=== PATIENT | female | born 1965 | race Caucasian/White ===

== ENCOUNTER 2018-08-26 14:30 | Emergency (ER) | payer BC, MEDICAID, OTHER ==
[2018-08-26 14:42] VITALS: BP 113/79
--- NOTE | 2018-08-26 14:59 | UC ---
Abdominal Pain Female HPI - HPI Summary HPI Summary: 53 yo female presents with lower abdominal pain for 1 week. She tells me that her pain started lower abdominal and was mild in nature. Yesterday and today her pain has significantly worsened. She reports 3-4 episodes of loose stools each day throughout the week. She states she has had UTIs in the past that have felt similar, but she is not having any urinary burning, frequency, or pressure. She is eating and drinking well, but does feel a little nauseous. Denies SOB, chest pain, vomiting, blood in stool, dysuria, flank pain, vaginal bleeding or discharge. She has had a hysterectomy, but still has both ovaries. - History of Current Complaint Chief Complaint: UCAbdominalPain Stated Complaint: SEVERE STOMACH PAIN Time Seen by Provider: 08/26/18 14:59 Hx Last Menstrual Period: hysterectomy Onset/Duration: Gradual Onset Severity Initially: Mild Severity Currently: Moderate Pain Intensity: 6 Pain Scale Used: 0-10 Numeric Allergies/Adverse Reactions: Allergies Allergy/AdvReac Type Severity Reaction Status Date / Time No Known Allergies Allergy Verified 08/26/18 14:42 Home Medications: Home Medications Bismuth Subsalicylate [Pepto-Bismol] 3 tab PO ONCE PRN 08/26/18 [History Confirmed 08/26/18] PMH/Surg Hx/FS Hx/Imm Hx - Additional Past Medical History Additional PMH: None - Surgical History Surgical History: Yes Surgery Procedure, Year, and Place: left wrist repair 2011. hysterecomy - Family History Known Family History: Positive: Hypertension - Social History Alcohol Use: Weekly Substance Use Type: None Smoking Status (MU): Never Smoked Tobacco Review of Systems All Other Systems Reviewed And Are Negative: Yes Constitutional: Positive: Negative Skin: Positive: Negative Respiratory: Positive: Negative Cardiovascular: Positive: Negative Gastrointestinal: Positive: Abdominal Pain, Diarrhea, Nausea Genitourinary: Positive: Negative Neurovascular: Positive: Negative Neurological: Positive: Negative Psychological: Positive: Negative Physical Exam - Summary Physical Exam Summary: GENERAL: NAD. WDWN. No pain distress. SKIN: No rashes, sores, lesions, or open wounds. NECK: Supple. Nontender. No lymphadenopathy. CHEST: CTAB. No r/r/w. No accessory muscle use. Breathing comfortably and in no distress. CV: RRR. Without m/r/g. Pulses intact. Cap refill <2seconds ABDOMEN: Mild TTP LLQ, superpubic, and RLQ. Soft. No distention or guarding. No CVA tenderness. Bowel sounds present NEURO: Alert. PSYCH: Age appropriate behavior. Triage Information Reviewed: Yes Vital Signs: Initial Vital Signs Temp 98 F 08/26/18 14:37 Pulse 71 08/26/18 14:37 Resp 14 08/26/18 14:37 BP 113/79 08/26/18 14:37 Pulse Ox 100 08/26/18 14:37 Laboratory Tests 08/26/18 14:53 POC Urine Color Light yellow POC Urine Clarity Clear POC Urine pH 5.5 POC Ur Specif [place] <= 1.005 L POC Urine Protein Negative POC Ur Glucose (UA) Negative POC Urine Ketones Negative POC Urine Blood Trace-lysed A POC Urine Nitrite Negative POC Urine Bilirubin Negative POC Urine Urobilinogen 0.2 POC U Leukocyte Esteras Negative Vital Signs Reviewed: Yes Abd Pain Female Course/Dx - Course Course Of Treatment: U/S: IMPRESSION: 1. STATUS POST HYSTERECTOMY. 2. SMALL CYSTS WITHIN THE RIGHT OVARY MOST CONSISTENT WITH FOLLICULAR CYSTS. Discussed results with pt. Given that she is having loose stools and nausea, I am not confident that these ovarian cysts are the sole cause of her discomfort - therefore I have recommended that she go to the ED for further evaluation of her abdominal pain as I believe she requires a CT scan with po contrast. Pt was agreeable with this. - Differential Dx/Diagnosis Provider Diagnosis: Lower abdominal pain, Loose stools Discharge - Sign-Out/Discharge Documenting (check all that apply): Patient Departure All imaging exams completed and their final reports reviewed: Yes - Discharge Plan Condition: Stable Disposition: HOME-RECOMMEND TO ED Referrals: Munira Diaz MD [Primary Care Provider] - Additional Instructions: Your ultrasound showed an ovarian cyst. This could be the cause of your pain, but your symptoms seem to support a potential GI pathology - therefore I recommend that you go to the ER for further evaluation and a more appropriate work up of your abdominal pain. This may include a CT scan with oral and IV contrast. - Billing Disposition and Condition Condition: STABLE Disposition: Home-Recommend to ED
== END 2018-08-26 16:41 | disposition home health service (06) ==
LOC: UCEAST 14:30
DX: R10.30 Lower abdominal pain, unspecified (principal); R19.7 Diarrhea, unspecified
CPT/HCPCS: 76830; 81003; 99212; G0463

== ENCOUNTER 2018-08-26 17:06 | Emergency (ER) | payer MEDICAID, OTHER ==
[2018-08-26] MEDS ORDERED: Ketorolac INJ* 30 MG/ML 1 ML VIAL IV PUSH ONE (18:01)
[2018-08-26] MEDS ORDERED: NS 0.9% 1000 ML** 1,000 ML IV ONE (18:01)
[2018-08-26 18:22] LABS: ABS Basophils 0.1 10^3/ul (0-0.2); ABS Eosinophils 0.1 10^3/ul (0-0.6); ABS Lymphocytes 1.5 10^3/ul (1.0-4.8); ABS Monocytes 0.7 10^3/ul (0-0.8); ABS Neutrophils 7.7 10^3/ul (1.5-7.7); Eosinophil % 0.6 %; Hematocrit 39 % (35-47); Hemoglobin 13.2 g/dL (12.0-16.0); Lymphocyte % 14.9 %; Mean Corpuscular HGB Conc 34 g/dL (31-36); Mean Corpuscular Hemoglobin 31 pg (27-31); Mean Corpuscular Volume 93 fL (80-97); Mean Platelet Volume 8.6 fL (7.4-10.4); Platelet Count 229 10^3/uL (150-450); Red Cell Distribution Width 14 % (10-15)
[2018-08-26 18:40] LABS: Albumin 4.5 g/dL (3.2-5.2); Albumin/Globulin Ratio 1.4 (1-3); BUN/Creatinine Ratio 14.7 (8-20); C Reactive Protein 32.57 mg/L (<8.01); Calcium 10.2 mg/dL (8.6-10.3); EGFR African American 110.4 (>60); EGFR Non-African American 91.2 (>60); Globulin 3.3 g/dL (2-4); Potassium 3.6 mmol/L (3.5-5.0); Total Bilirubin 0.8 mg/dL (0.2-1.0); Total Protein 7.8 g/dL (6.4-8.9)
--- NOTE | 2018-08-26 18:40 | ED ---
GI/ HPI - HPI Summary HPI Summary: 53-year-old female presents with lower abdominal pain. for the past week. pain has been increasing. States she's been having loose stool. She admits to of decreased appetite. Admits to some urgency and frequency but no dysuria. She has been having nausea but no vomiting. No hematuria. Never this pain before. No previous surgeries. Has no medical conditions. tried Pepto-Bismol for her symptoms today. - History of Current Complaint Chief Complaint: EDAbdPain Time Seen by Provider: 08/26/18 17:56 Stated Complaint: ABD PAIN PER PT Hx Last Menstrual Period: hysterectomy Pain Intensity: 8 - Allergy/Home Medications Allergies/Adverse Reactions: Allergies Allergy/AdvReac Type Severity Reaction Status Date / Time No Known Allergies Allergy Verified 08/26/18 14:42 PMH/Surg Hx/FS Hx/Imm Hx Endocrine/Hematology History: Denies: Hx Diabetes, Hx Thyroid Disease Cardiovascular History: Denies: Hx Hypertension, Hx Pacemaker/ICD Respiratory History: Denies: Hx Asthma, Hx Chronic Obstructive Pulmonary Disease (COPD) GI History: Denies: Hx Ulcer History: Denies: Hx Dialysis, Hx Renal Disease Sensory History: Denies: Hx Hearing Aid Psychiatric History: Denies: Hx Panic Disorder - Cancer History Hx Chemotherapy: No Hx Radiation Therapy: No - Surgical History Surgery Procedure, Year, and Place: left wrist repair 2011. hysterecomy Infectious Disease History: No Infectious Disease History: Denies: Hx Hepatitis, Hx Human Immunodeficiency Virus (HIV), Traveled Outside the [place] in Last 30 Days - Family History Known Family History: Positive: Hypertension - Social History Alcohol Use: Weekly Substance Use Type: Reports: None Smoking Status (MU): Never Smoked Tobacco Review of Systems Negative: Fever Negative: Chest Pain Negative: Shortness Of Breath Positive: Abdominal Pain, Diarrhea, Nausea. Negative: Vomiting All Other Systems Reviewed And Are Negative: Yes Physical Exam Triage Information Reviewed: Yes Vital Signs On Initial Exam: Initial Vitals Temp Pulse Resp BP Pulse Ox 98.5 F 79 18 112/81 99 08/26/18 17:08 08/26/18 17:08 08/26/18 17:08 08/26/18 17:08 08/26/18 17:08 Vital Signs Reviewed: Yes Appearance: Positive: Well-Appearing Skin: Positive: Warm, Dry Head/Face: Positive: Normal Head/Face Inspection Eyes: Positive: Normal, Conjunctiva Clear ENT: Positive: Pharynx normal Respiratory/Lung Sounds: Positive: Clear to Auscultation, Breath Sounds Present Cardiovascular: Positive: Normal, RRR Abdomen Description: Positive: Soft, Other: - tenderness LLQ Bowel Sounds: Positive: Present Musculoskeletal: Positive: Normal Neurological: Positive: Normal Psychiatric: Positive: Normal Diagnostics - Vital Signs Vital Signs Temp Pulse Resp BP Pulse Ox 08/26/18 18:00 79 100 08/26/18 17:53 76 99 08/26/18 17:08 98.5 F 79 18 112/81 99 - Laboratory Lab Results: Lab Results 08/26/18 08/26/18 08/26/18 Range/Units 18:15 18:15 18:15 WBC 10.0 (3.5-10.8) 10^3/uL RBC 4.20 (3.70-4.87) 10^6 /uL Hgb 13.2 (12.0-16.0) g/dL Hct 39 (35-47) % MCV 93 (80-97) fL MCH 31 (27-31) pg MCHC 34 (31-36) g/dL RDW 14 (10-15) % Plt Count 229 (150-450) 10^3/uL MPV 8.6 (7.4-10.4) fL Neut % (Auto) 76.6 % Lymph % (Auto) 14.9 % [place] % (Auto) 7.4 % Eos % (Auto) 0.6 % Baso % (Auto) 0.5 % Absolute Neuts (auto) 7.7 (1.5-7.7) 10^3/ul Absolute Lymphs (auto) 1.5 (1.0-4.8) 10^3/ul Absolute Monos (auto) 0.7 (0-0.8) 10^3/ul Absolute Eos (auto) 0.1 (0-0.6) 10^3/ul Absolute Basos (auto) 0.1 (0-0.2) 10^3/ul Absolute Nucleated RBC 0.0 10^3/ul Nucleated RBC % 0.0 Sodium 136 (135-145) mmol/L Potassium 3.6 (3.5-5.0) mmol/L Chloride 100 L (101-111) mmol/L Carbon Dioxide 30 (22-32) mmol/L Anion Gap 6 (2-11) mmol/L BUN 10 (6-24) mg/dL Creatinine 0.68 (0.51-0.95) mg/dL Est GFR ( Amer) 110.4 (>60) Est GFR (Non-Af Amer) 91.2 (>60) BUN/Creatinine Ratio 14.7 (8-20) Glucose 77 (70-100) mg/dL Lactic Acid 0.5 (0.5-2.0) mmol/L Calcium 10.2 (8.6-10.3) mg/dL Total Bilirubin 0.80 (0.2-1.0) mg/dL AST 14 (13-39) U/L ALT 10 (7-52) U/L Alkaline Phosphatase 53 (34-104) U/L C-Reactive Protein 32.57 H (<8.01) mg/L Total Protein 7.8 (6.4-8.9) g/dL Albumin 4.5 (3.2-5.2) g/dL Globulin 3.3 (2-4) g/dL Albumin/Globulin Ratio 1.4 (1-3) Lipase 15 (11.0-82.0) U/L Result Diagrams: 08/26/18 18:15 08/26/18 18:15 Lab Statement: Any lab studies that have been ordered have been reviewed, and results considered in the medical decision making process. - CT abd CT Interpretation Completed By: Radiologist Summary of CT Findings: IMPRESSION: 1. Proximal sigmoid colon diverticulitis. No perforation or abscess. 2. Bosniak type I renal cyst. No followup indicated. Re-Evaluation - Re-Evaluation First Eval Re-Evaluation Time: 17:50 Change: Improved Comment: feeling better Second Eval Re-Evaluation Time: 21:45 Comment: discussed results GIGU Course/Dx - Course Course Of Treatment: 53-year-old female presents with lower abdominal pain. for the past week. pain has been increasing. States she's been having loose stool. She admits to of decreased appetite. Admits to some urgency and frequency but no dysuria. She has been having nausea but no vomiting. No hematuria. Never this pain before. No previous surgeries. Has no medical conditions. tried Pepto-Bismol for her symptoms today. On exam tenderness left lower quadrant. White blood count normal. CRP elevated. urine normal. CT shows diverticulitis. will treat with augmentin and flagyl. patient understand and agrees with plan. - Diagnoses Differential Diagnoses - Female: Appendicitis, Diverticulitis, Urinary Tract Infection Provider Diagnoses: Diverticulitis Discharge - Sign-Out/Discharge Documenting (check all that apply): Patient Departure Patient Received Moderate/Deep Sedation with Procedure: No - Discharge Plan Condition: Good Disposition: HOME Prescriptions: Amoxicillin/Clavulanate TAB* [Augmentin TAB 875*] 875 mg PO BID #19 tab metroNIDAZOLE [Flagyl 500 MG TAB] 500 mg PO TID #29 tab Ondansetron ODT TAB* [Zofran 4 MG Odt TAB*] 4 mg PO Q6H PRN #16 tab.odt PRN Reason: Nausea Patient Education Materials: Diverticulitis (ED), Diverticulitis Diet (ED) Referrals: Munira Diaz MD [Primary Care Provider] - Additional Instructions: Take augmentin twice a day for 10 days, first dose given in ED Take Flagyl every 8 hours for 10 days, first dose given in ED Take Zofran every 6 hours for nausea Follow clear liquid diet until symptoms improve Return to ED if unable to keep anything down, develop fever, or any new or worsening symptoms - Billing Disposition and Condition Condition: GOOD Disposition: Home
[2018-08-26 18:48] LABS: Urine Appearance Clear; Urine Bacteria 1+ (Absent); Urine Bilirubin Negative (Negative); Urine Blood 1+ (Negative); Urine Color Straw; Urine Glucose Negative (Negative); Urine Ketones Negative (Negative); Urine Nitrite Negative (Negative); Urine Protein Negative (Negative); Urine Red Blood Cell Trace(0-2/hpf) (Absent); Urine Specific Gravity 1.004 (1.010-1.030); Urine Squamous Epithelial Cell Present (Absent); Urine Urobilinogen Negative (Negative); Urine White Blood Cell Absent (Absent)
[2018-08-26] MEDS ORDERED: Iohexol 300* (CONTRAST) 10 ML SDV IV ONE (19:47)
[2018-08-26 21:35] VITALS: BP 115/87
[2018-08-26] MEDS ORDERED: Amoxicillin/Clavulanate TAB* 875 MG PO ONE (21:42)
[2018-08-26] MEDS ORDERED: metroNIDAZOLE TAB* 250 MG PO ONE (21:42)
== END 2018-08-26 21:55 | disposition home or self-care (01) ==
LOC: ED 17:06
DX: K57.32 Diverticulitis of large intestine without perforation or abscess without bleeding (principal); N28.1 Cyst of kidney, acquired; Z90.710 Acquired absence of both cervix and uterus
CPT/HCPCS: 36415; 74177; 80053; 81003; 81015; 83605; 83690; 85025; 86140; 87086; 96361; 96374; 99283; A9270-GY; J1885; Q9967

== ENCOUNTER 2018-09-19 12:33 | Emergency (ER) | payer OTHER ==
--- OUTSIDE RECORDS SUMMARY | 2018-09-19 12:40 | XMS REPORT | Continuity of Care Document ---
:1965 External Reference #:[id number] Author Name Natasha Forman Care Team Providers Name Role Phone Munira Diaz MD Primary Care Physician Unavailable Payers Date Identification Numbers Payment Provider Subscriber Policy Number: [id number] Alexis Ward PayID: [id number] [address] [place] [address] Problems Active Problems Provider Date Uterine leiomyoma Gabriella Keller N.PTy Onset: 05/06/2015 Family History Date Family Member(s) Observation Comments General Arthritis Father Hypertension Age 67 Father PGF - stroke Mother Alive And Well Age 67 Siblings None Social History Type Date Description Comments Sex Unknown Marital Status 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 ETOH Use Currently consumes alcohol 2 - 6 per week Tobacco Use Start: Unknown Patient has never smoked Recreational Drug Use Negative For Denies Drug Use Smoking Status Reviewed: 09/10/18 Patient has never smoked Exercise Type/Frequency Exercises sporadically Allergies, Adverse Reactions, Alerts Description No Known Drug Allergies Medications Active Medications SIG Qnty Indications Ordering Date Provider Metronidazole take 1 tablet by Unknown 500mg mouth three times a Tablets day for 10 days Amoxicillin/Clavulana take 1 tablet by Unknown te Potassium mouth twice a day 875-125mg for 10 days Tablets Vitamin B 12 1 sl every day Unknown 100mcg Lozenges Magnesium 1-2 by mouth every Unknown 300mg day Capsules Hot Flash Relief 2 Tablets Twice A Unknown 500MG Day Deep Rest Unknown Black Cohosh 1 by mouth every day Unknown 40mg Capsules Ibuprofen by mouth three times Unknown 800mg Tablets a day as needed Colace 2 caps po twice Unknown 100mg Capsules daily Vitamin D3 twice a week Unknown 5000Unit/ML Liquid [place] III 1 by mouth Unknown 1000mg occasionally Capsules History Medications Lact-Enz Unknown - 07/12/2015 Utrophin Unknown - 07/12/2015 Cardio Complete Unknown - 07/12/2015 Capsules Oxycodone-Acetaminophen take 1 to 2 tablets by Unknown - 09/2018 5-325mg mouth every 6 to 8 Tablets hours as needed pain Megestrol 1 by mouth bid Unknown - 07/28/2015 40mg Tablets Intelligent Blend 1 by mouth daily (on Unknown - 07/28/2015 Tablets hold) Progesterone Micronized 1 by mouth every day Unknown - 2015 85G Day 12-26 Capsules Smooth Cycle 1 po qd Unknown - 07/28/2015 W15-Invbyp 1 po qd Unknown - 07/28/2015 Iron 1 by mouth every day Unknown - 07/23/2018 325(65Fe) mg Tablets Oxycodone-Acetaminophen Unknown - 05/16/2015 5-325mg Tablets Sulfamethoxazole/Trimethopr Unknown - Unknown im DS 800-160mg Tablets Vital Signs Date Vital Result Comment 09/10/2018 1:33pm Height 64 inches 5'4" Weight 118.00 lb Heart Rate 68 /min BP Systolic 113 mmHg BP Diastolic 69 mmHg O2 % BldC Oximetry 97 % BMI (Body Mass Index) 20.3 kg/m2 07/23/2018 2:45pm Height 64 inches 5'4" Weight 116.00 lb Heart Rate 59 /min BP Systolic 141 mmHg BP Diastolic 92 mmHg Body Temperature 97.7 F O2 % BldC Oximetry 100 % BMI (Body Mass Index) 19.9 kg/m2 07/29/2015 9:34am Height 64 inches 5'4" Weight 137.75 lb w/shoes Heart Rate 84 /min BP Systolic Sitting 96 mmHg Ra reg cuff BP Diastolic Sitting 72 mmHg Ra reg cuff BMI (Body Mass Index) 23.6 kg/m2 Ejection Fraction 55-60% Echo 06/04/15 07/12/2015 10:02am Height 64 inches 5'4" Weight 143.00 lb Heart Rate 84 /min BP Systolic Sitting 100 mmHg BP Diastolic Sitting 70 mmHg Respiratory Rate 14 /min Pain Level 2 BMI (Body Mass Index) 24.5 kg/m2 06/14/2015 10:59am Height 64 inches 5'4" Weight 140.12 lb Heart Rate 84 /min BP Systolic Sitting 104 mmHg BP Diastolic Sitting 70 mmHg Pain Level 3 BMI (Body Mass Index) 24.0 kg/m2 05/17/2015 8:43am Height 67 inches 5'7" Weight 139.00 lb with shoes Heart Rate 78 /min BP Systolic Sitting 51297 mmHg reg cuff LA BMI (Body Mass Index) 21.8 kg/m2 05/14/2015 3:24pm Height 67 inches 5'7" Weight 137.00 lb Heart Rate 76 /min BP Systolic Sitting 112 mmHg BP Diastolic Sitting 82 mmHg BMI (Body Mass Index) 21.5 kg/m2 05/06/2015 9:57am Weight 137.00 lb Heart Rate 70 /min BP Systolic Sitting 110 mmHg BP Diastolic Sitting 62 mmHg Respiratory Rate 15 /min Body Temperature 98.2 F O2 % BldC Oximetry 98 % Results Test Date Facility Test Result H/L Range Note Laboratory test 09/10/2018 [facility] Gardnerella/Y <pending> finding [address]: [place] [address] Dna [phone] Urine Culture And 08/26/2018 [facility] Urine Culture SEE RESULT 1, [address] [place] [address] [phone] Urinalysis Profile 08/26/2018 [facility] Urine Color Straw [address] [place] [address] [phone] Urine Appearance Clear Urine Specific [place] 1.004 Low 1.010-1.030 Urine pH 6.0 N 5-9 Urine Urobilinogen Negative Negative Urine Ketones Negative Negative Urine Protein Negative Negative Urine Leukocytes Negative Negative Urine Blood 1+ Abnormal Negative Urine Nitrite Negative Negative Urine Bilirubin Negative Negative Urine Glucose Negative Negative Urine White Blood Cell Absent Absent Urine Red Blood Cell Trace(0-2/hpf) Absent Urine Bacteria 1+ Abnormal Absent Urine Squamous Epithelial Cell Present Abnormal Absent Laboratory test finding 08/26/2018 [facility] Lipase 15 U/L N 11.0-82.[address] [place] [address] [phone] C Reactive Protein 32.57 mg/L High <8.01 Comp Metabolic Panel 08/26/2018 [facility] Sodium 136 mmol/L N 135-145 [address] [place] [address] [phone] Potassium 3.6 mmol/L N 3.5-5.0 Chloride 100 mmol/L Low 101-111 Co2 Carbon Dioxide 30 mmol/L N 22-32 Anion Gap 6 mmol/L N 2-11 Glucose 77 mg/dL N 70-100 Blood Urea Nitrogen 10 mg/dL N 6-24 Creatinine 0.68 mg/dL N 0.51-0.95 BUN/Creatinine Ratio 14.7 N 8-20 Calcium 10.2 mg/dL N 8.6-10.3 Total Protein 7.8 g/dL N 6.4-8.9 Albumin 4.5 g/dL N 3.2-5.2 Globulin 3.3 g/dL N 2-4 Albumin/Globulin Ratio 1.4 N 1-3 Total Bilirubin 0.80 mg/dL N 0.2-1.0 Alkaline Phosphatase 53 U/L N 34-104 Alt 10 U/L N 7-52 Ast 14 U/L N 13-39 Egfr Non- 91.2 >60 Egfr 110.4 >60 3 Laboratory test 08/26/2018 [facility] Lactic Acid 0.5 mmol/L N 0.5-2.0 4 finding [address] [place] [address] [phone] CBC Auto Diff 08/26/2018 [facility] White Blood 10.0 10^3/uL N 3.5-10.8 [address] [facility] [place] [address] [phone] Red Blood Count 4.20 10^6/uL N 3.70-4.87 Hemoglobin 13.2 g/dL N 12.0-16.0 Hematocrit 39 % N 35-47 Mean Corpuscular Volume 93 fL N 80-97 Mean Corpuscular Hemoglobin 31 pg N 27-31 Mean Corpuscular HGB Conc 34 g/dL N 31-36 Red Cell Distribution Width 14 % N 10-15 Platelet Count 229 10^3/uL N 150-450 Mean Platelet Volume 8.6 fL N 7.4-10.4 Abs Neutrophils 7.7 10^3/uL N 1.5-7.7 Abs Lymphocytes 1.5 10^3/uL N 1.0-4.8 Abs Monocytes 0.7 10^3/uL N 0-0.8 Abs Eosinophils 0.1 10^3/uL N 0-0.6 Abs Basophils 0.1 10^3/uL N 0-0.2 Abs Nucleated RBC 0.0 10^3/uL Granulocyte % 76.6 % Lymphocyte % 14.9 % Monocyte % 7.4 % Eosinophil % 0.6 % Basophil % 0.5 % Nucleated Red Blood Cells % 0.0 Connective Tissue 06/14/2015 [facility] Anti-Nuclear Antibody 0.7 U N 5 Panel [address] [place] [address] [phone] Cyclic Citrullinated Peptide <15.6 U N 6 Interpretation See Comment N 7 Laboratory test 06/14/2015 [facility] Ferritin < 10.0 ng/mL Low 11-307 finding [address] [place] [address] [phone] Folic Acid (Folate) > 20.00 ng/mL N >3.99 Vitamin B12 446 pg/mL N 180-914 8 Iron & Iron Binding 06/14/2015 [facility] Iron 53 g/dL N 50- 212 [address] [place] [address] [phone] Unsaturated Iron Binding 458 g/dL N Total Iron Binding Capacity 511 g/dL High 250-450 % Iron Saturation 10 % Low 15-55 Laboratory test 06/14/2015 [facility] LDH 131 U/L Low 140-271 finding [address] [place] [address] [phone] Retic Count 06/14/2015 [facility] Retic Count 0.9 % N 0.5-1.5 [address] [place] [address] [phone] Corrected Retic Count 0.6 % N 0.5-1.5 Maturation Factor Retic 1.5 N Retic Index 0.40 N Mean Retic Volume 111.0 N Immature Retic Fraction 0.36 N RBC Retic Count 3.50 10^6/uL Low 4.6-6.2 Hematocrit for Retic CNT 31 % Low 35-47 Anti-Thyroid 06/14/2015 [facility] Thyroperoxidase AB 0.00 IU/ mL N <9 9 Antibodies Screen [address] [place] [address] [phone] Thyroglobulin AB <1.8 IU/mL N <4.0 10 Protein 06/14/2015 [facility] Total 8.0 Abnormal 6.3 - Electrophoresis [address] Protein(Pep) g/dL 7.9 [place] [address] [phone] Albumin 4.0 g/dL N 3.4-4.7 Alpha-1 Globulin 0.2 g/dL N 0.1-0.3 Alpha-2 Globulin 1.0 g/dL N 0.6-1.0 Beta Globulin 1.2 g/dL N 0.7-1.2 Gamma Globulin 1.6 g/dL N 0.6-1.6 Albumin/Globulin Ratio 1.00 N Impression See Comment N 11 Laboratory test 06/14/2015 [facility] Angiotensin 18 U/L N 8 - [address] [employer] [place], [place] [id number] [phone] Celiac Panel 06/14/2015 [facility] Tissue <1.[address] Transglutaminase IgA U/[place] [address] Ab [phone] Immunoglobulin A 359 mg/dL Abnormal 61 - 356 Celiac Interpretation See Comment N 14 Laboratory test 06/14/2015 [facility] Serotonin Serum 127 N <= [address] ng/mL [place], [place] [address] [phone] Scleroderma AB 06/14/2015 [facility] Scleroderma Ab 2.2 U Abnormal 16 (SCL70) [address] [place] [address] [phone] Laboratory test 06/14/2015 [facility] Erythrocyte Sed 24 mm/Hr High 0-[address] [place] [address] [phone] Creatine Kinase(CK) 59 U/L N 10-223 C Reactive Protein 1.26 mg/L N < 5.00 17 Neutrophil Cytoplasmic 06/14/2015 [facility] C-Anca Negative N Negative AB [address] [place] [address] [phone] P Anca Negative N Negative Anca Reviewed By MD Blue [place]il[place] <SEE NOTE> N 18 Cardiolipin 06/14/2015 [facility] Phospholipid Ab < 4.0 MPL N 19 Igg/Igm [address] IgM, [place], [place] [address] [phone] Phospholipid Ab IgG 6.4 GPL N 20 1 Pt was evaluated in ER , had diverticulitis. 2 SEE RESULT BELOW Name: VIK WARD : [address]: Kashif Castillo MD Acct: [id number] Unit: [id number] AGE: 53 Location: ED Re08/26/18 SEX: F Status: DEP ER SPEC: [id number] SOFIE: 08/26/[address]: Patty RUIZ REQ: [id number] RECD: 08/26/18 STATUS: SHIREEN ASHBY DR: Marielle Diaz MD PC Kashif Castillo MD _ SOURCE: URINE SPDESC: ORDERED: Urine Culture Procedure Result Reported Site Urine Culture Final 08/27/18- 1614 ML No Growth (<1,000 CFU/mL) * ML - Main Lab . END OF REPORT DEPARTMENT OF PATHOLOGY, [address] [place] [address] Blue Llamas M.D. Director [facility] # [id number] 3 Because ethnic data is not always readily available, this report includes an eGFR for both -Americans and non- Americans. The National Kidney Disease Education Program (NKDEP) does not endorse the use of the MDRD equation for patients that are not between the ages of 18 and 70, are , have extremes of body size, muscle mass, or nutritional status, or are non- or non-. According to the National Kidney Foundation, irrespective of diagnosis, the stage of the disease is based on the level of kidney function: Stage Description GFR(mL/min/1.73 m(2)) 1 Kidney damage with normal or decreased GFR 90 2 Kidney damage with mild decrease in GFR 60-89 3 Moderate decrease in GFR 30-59 4 Severe decrease in GFR 15-29 5 Kidney failure <15 (or dialysis) 4 [facility] Severe Sepsis and Septic Shock Management Bundle Measure requires all lactic acids initially measuring >2.0 mmol/L be repeated. 5 REFERENCE VALUE <=1.0 (Negative) 6 REFERENCE VALUE <20.0 (Negative) 7 Tests for antibodies to dsDNA and JORGE antigens are not performed automatically unless the JEFF result is > or= 3.0 U. Studies performed at [facility] indicate that positive JEFF results <3.0 U are rarely accompanied by positive second order tests. Test Performed by: [place] [address] All Source Collection Manager: Jordan Carrera II, M.D., Ph.D. 8 Normal Range 180 to 914 Indeterminate Range 145 to 180 Deficient Range <145 9 Results verified by repeat analysis on the sample. Repeated result is:0.00 10 ADDITIONAL INFORMATION The thyroglobulin antibody testing method is an immunoenzymatic assay manufactured by [employer] and performed on the [employer] DXI 800. Values obtained from different assay methods or kits may be different and cannot be used interchangeably. The results cannot be interpreted as absolute evidence for the presence or absence of malignant disease. Test Performed by: [place] [address] All Source Collection Manager: Jordan Carrera II, M.D., Ph.D. 11 RESULT: No apparent monoclonal protein on serum electrophoresis. Test Performed by: [place] [address] All Source Collection Manager: Jordan Carrera II, M.D., Ph.D. 12 Test Performed by: [place] [address] All Source Collection Manager: Jordan Carrera II, M.D., Ph.D. 13 REFERENCE VALUE <4.0 (Negative) Test Performed by: [place] [address] All Source Collection Manager: Jordan Carrera II, M.D., Ph.D. 14 Negative serology. Celiac disease unlikely. However, approximately 10% of patients with celiac disease are seronegative. Also, patients who are already adhering to a gluten-free diet may be seronegative. If celiac disease is highly clinically suspected, consider HLA-DQ typing. Test Performed by: [place] [address] All Source Collection Manager: Jordan Carrera II, M.D., Ph.D. 15 Test Performed by: [place] [address] All Source Collection Manager: Jordan Carrera II, M.D., Ph.D. 16 Interpretation: Positive (>=1.0) REFERENCE VALUE <1.0 (Negative) Test Performed by: [place] [address] All Source Collection Manager: Jordan Carrera II, M.D., Ph.D. 17 Acute inflammation: >10.00 18 Blue Llamas 19 REFERENCE VALUE <10.0 (Negative) 20 REFERENCE VALUE <10.0 (Negative) Test Performed by: [place] [address] All Source Collection Manager: Jordan Carrera II, M.D., Ph.D. Procedures Date Code Description Status 06/28/2017 75891944 Mammogram Completed 07/04/2015 02842 Holter Monitor Review (24 hr)dr corey & interp only Completed 07/01/2015 48066 ECG Monitor/Recording W/Visual Superimposition Scanning Completed 06/09/2015 29536 ECHO Stress Test Incl Perf Contiuous ekg Monitoring Completed W/Phys Superv 06/04/2015 73432 ECHO Transthoracic, Real-Time 2D With Doppler And Color Completed Flow 05/17/2015 89222 EKG Tracing & Interpretation Completed Encounters Type Date Location Provider Dx Diagnosis Office Visit 07/23/2018 [facility] N95.1 Menopausal and 2:30p [facility] SARA Miller female climacteric states F43.20 Adjustment disorder, unspecified E55.9 Vitamin D deficiency, unspecified R76.0 Raised antibody titer R53.83 Other fatigue Z87.820 Personal history of traumatic brain injury Office Visit 07/29/2015 9:40a [facility] Qutaybeh S. 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 R00.2 Palpitations Keo Roach R07.9 Chest pain, unspecified R00.0 Tachycardia, unspecified D50.8 Other iron deficiency anemias Office Visit 05/14/2015 3:00p Alireza Nance D25.9 [facility] Keo Pat uterus, unspecified Office Visit 05/06/2015 10:00a [facility] Internal Gabriella Keller, D25.9 Leiomyoma of Medicine - N.P. uterus, Ccmob unspecified Plan of Treatment 09/10/2018 - Vicki Bruce, NPN76.0 Acute vaginitisFollow up:I will call you tomorrow with results
[2018-09-19 13:07] VITALS: BP 109/76
--- NOTE | 2018-09-19 15:08 | UC ---
Respiratory Complaint HPI - HPI Summary HPI Summary: 2 DAYS OF COUGH AND MILD EAR PAIN. NO FEVER, CONGESTION, SORE THROAT, NAUSEA/ VOMITING. NO SINUS PRESSURE. NO H/O ALLERGIES - History of Current Complaint Chief Complaint: UCRespiratory Stated Complaint: BACK PAIN, AND COUGH Time Seen by Provider: 09/19/18 14:47 Hx Obtained From: Patient Hx Last Menstrual Period: hysterectomy Onset/Duration: Gradual Onset, Lasting Days, Still Present Timing: Constant Severity Initially: Mild Severity Currently: Mild Pain Intensity: 5 Pain Scale Used: 0-10 Numeric Character: Cough: Nonproductive Aggravating Factors: Nothing Alleviating Factors: Nothing Associated Signs And Symptoms: Positive: URI. Negative: Dyspnea, Fever, Wheezing, Hemoptysis, Nasal Congestion, Hoarseness, Sinus Discomfort - Allergies/Home Medications Allergies/Adverse Reactions: Allergies Allergy/AdvReac Type Severity Reaction Status Date / Time No Known Allergies Allergy Verified 09/19/18 13:08 PMH/Surg Hx/FS Hx/Imm Hx GI/ History: Diverticulitis - Surgical History Surgical History: Yes Surgery Procedure, Year, and Place: left wrist repair 2011. hysterecomy - Family History Known Family History: Positive: Hypertension - Social History Alcohol Use: Weekly Substance Use Type: None Smoking Status (MU): Never Smoked Tobacco Review of Systems All Other Systems Reviewed And Are Negative: Yes Constitutional: Positive: Negative ENT: Positive: Ear Ache Respiratory: Positive: Cough Cardiovascular: Positive: Negative Gastrointestinal: Positive: Negative Genitourinary: Positive: Negative Physical Exam Triage Information Reviewed: Yes Appearance: Well-Appearing, No Pain Distress, Well-Nourished Vital Signs: Initial Vital Signs Temp 98.8 F 09/19/18 13:04 Pulse 81 09/19/18 13:04 Resp 18 09/19/18 13:04 BP 109/76 09/19/18 13:04 Pulse Ox 100 09/19/18 13:04 Vital Signs Reviewed: Yes Eyes: Positive: Conjunctiva Clear ENT: Positive: Hearing grossly normal, Pharynx normal, TMs normal Neck: Positive: Supple, Nontender, No Lymphadenopathy Respiratory Exam: Normal Cardiovascular Exam: Normal Abdomen Description: Positive: Soft. Negative: CVA Tenderness (R), CVA Tenderness (L) Musculoskeletal: Positive: No Edema Neurological: Positive: Alert Psychological: Positive: Age Appropriate Behavior Skin: Negative: Rashes Respiratory Course/Dx - Course Course Of Treatment: NORMAL EXAM. TREAT CONSERVATIVELY. NO ABX. TESSALON ERX. OTC MEDS NEEDED. F/ U IF NOT IMPROVING. - Differential Dx/Diagnosis Provider Diagnosis: Cough Discharge - Sign-Out/Discharge Documenting (check all that apply): Patient Departure All imaging exams completed and their final reports reviewed: No Studies - Discharge Plan Condition: Stable Disposition: HOME Prescriptions: Benzonatate CAP* [Tessalon CAP*] 1 - 2 cap PO TID PRN #30 cap PRN Reason: Cough Patient Education Materials: Acute Cough (ED) Referrals: Munira Diaz MD [Primary Care Provider] - If Needed Additional Instructions: YOUR SYMPTOMS ARE LIKELY VIRALLY MEDIATED AND SHOULD RESOLVE ON THEIR OWN WITH TIME. NO INDICATION FOR ANTIBIOTICS AT PRESENT. REST, HYDRATE, OTC MEDS NEEDED. WILL TREAT WITH COUGH MEDICINE. SEEK FOLLOW-UP IF YOU ARE NOT IMPROVING OVER THE NEXT 1-2 WEEKS. - Billing Disposition and Condition Condition: STABLE Disposition: Home
== END 2018-09-19 15:10 | disposition home or self-care (01) ==
LOC: UCEAST 12:33
DX: R05 Cough (principal)
CPT/HCPCS: 99212; G0463